=== PATIENT | male | born 1955 | race Caucasian/White ===

== ENCOUNTER 2021-10-27 15:18 | Emergency (ER) | payer MEDICARE, SELFPAY ==
--- NOTE | 2021-10-27 15:34 | USCV_ITS ---
Norris Garcia Age: 66 Gender: M : 1955 Exam Date: 10/27/2021 15:48 Ordering Phys: Sally Hawkins MD Technologist: Kaitlin Westbrook Exam Location: [facility] [place] Indication: PAIN LT LOWE LEG HISTORY: Severe pain lt lower leg PROCEDURES: Venous duplex imaging was performed in only the left lower extremity. The following venous structures were evaluated: common femoral vein, profunda vein, proximal portion of the greater saphenous vein, superficial femoral vein, and the popliteal vein. In addition, the posterior tibial and peroneal trunk were evaluated. Serial compression, augmentation maneuvers, and spectral Doppler flow evaluation were performed. Also images of post calf at area of pain. FINDINGS: No DVT ?Old superficial Lt. SSV thrombus. Calcified area post calf. CONCLUSIONS No evidence of left lower extremity DVT. Chronic appearing calcified superficial thrombus Left short saphenous vein in the posterior calf area of pain Gatito De La Cruz MD (Electronically Signed) Final Date: 27 Oct 2021 16:20 S
[2021-10-27 15:41] VITALS: BP 140/85; PULSE 91; RESP 20; TEMP 36.7; O2SAT 97; BMI 35.3
--- NOTE | 2021-10-27 16:57 | ED_ITS ---
HPI - Extremity Problem General: Chief complaint: Extremity Injury, Lower Stated complaint: Left leg pain, poss bloodclot Time Seen by Provider: 10/27/21 16:33 Source: patient Mode of arrival: ambulatory Limitations: no limitations History of Present Illness: Patient is a 66-year-old male who presents to ED today along with his for concerns of significant discomfort involving his left lower extremity. Patient states symptoms been present over the past month or so. He states he always has pain to that area but will have exacerbations that are what he describes as almost crippling. He has had no injury or trauma to the area. He has not noticed any redness, swelling, warmth, pallor, coolne ss. No abnormal skin lesions. Patient is a diabetic and has bilateral lower extremity neuropathy but states this does not feel anything like that. He states pain is located to the lateral aspect of his left lower leg. It does not extend down into the foot and he does not complain of pain proximally. Patient states he does have chronic left-sided sciatica but reports this pain is mild and he is dealt with it for a long time and describes it is very tolerable. Patient states they have been moving back and forth from [place]. He states they have seen multiple clinics along the way for evaluation of his leg pain as it is becoming unbearable. He states he can get minimal relief after sitting in a hot tub alternating ice as well as applying lidocaine patches. He reports possibly some minimal relief with certain positions lying down. states he has not slept in several days because he tosses and turns all night because of discomfort. Complaint: extremity pain Onset (ago): month(s) Pain Consistency: intermittent Location: left and lower extremity Radiation: none Exacerbating factors: nothing Associated symptoms: Reports no associated symptoms; Deny chest pain, fever(s) or rash Context: recent travel (moving back and forth from [place] ) Review of Systems Const: Denies: fever(s), chills, body aches, fatigue or malaise Card: Denies: chest pain Resp: Denies: dyspnea GI: Denies: abdominal pain : Denies: flank pain, dysuria or hematuria Musc: Reports: back pain (chronic) and extremity pain; Denies: neck pain, extremity swelling, joint pain, joint swelling, joint redness, joint warmth, limited range of motion, muscle cramps, muscle weakness or decrease in muscle mass Skin/Breast: Denies: rash Neuro: Reports: numbness in extremities (chronic diabetic neuropathy); Denies: headache(s), weakness in extremities or difficulty walking Physical Exam Const: COMMON NORMALS: patient oriented x3, no limitations and alert GENERAL APPEARANCE: cooperative and in distress (anxious/appears uncomfortable at times due to leg pain) NUTRITIONAL APPEARANCE: overweight ORIENTATION/CONSCIOUSNESS: Yes awake, Yes oriented to person, Yes oriented to place and Yes oriented to time HENMT: COMMON NORMALS: normocephalic and atraumatic HEAD & SCALP: normal to inspection, normocephalic and atraumatic Resp: COMMON NORMALS: normal respiratory effort and clear to auscultation bilaterally AUSCULTATION: clear to auscultation bilaterally Cardio: COMMON NORMALS: regular rate and regular rhythm RATE: regular rate RHYTHM: regular rhythm GI: COMMON NORMALS: Normal to inspection, nondistended, normoactive bowel sounds present, Soft to palpation, non-tender and no masses PALPATION: Yes Soft to palpation : COMMON NORMALS: Yes no CVA tenderness BLADDER/KIDNEY EXAM: Yes no CVA tenderness Back/Pelvis: COMMON NORMALS: no CVA tenderness, thoracic and lumbar spine normal to inspection, no thoracic nor lumbar tenderness, thoraco-lumbar ROM normal and straight leg raise negative bilaterally PELVIS: Yes buttocks normal SACROILIAC JOINTS: Yes SI joint(s) abnormal (mild tenderness to L SI that he states is normal/tolerable ) Extremity: COMMON NORMALS: normal to inspection, full ROM, capillary refill no rmal, no joint enlargement, no clubbing, cyanosis or edema, no calf tenderness and no pedal edema GENERAL: Yes normal exam except as noted EXTREMITY IMAGE (FRONT): 1. TTP; location of pain/discomfort Neuro: ZOE COMA SCALE: document GCS findings Zoe coma scale eye opening: Spontaneous Zoe coma scale verbal response: Orientated Zoe coma scale motor response: Obey commands [place] coma scale total score: 15 COMMON NORMALS: patient oriented x3, moves all extremities, no focal motor deficits, no sensory deficits noted and gait normal SENSORIUM/ORIENTATION: Yes alert, Yes oriented to person, Yes oriented to place and Yes oriented to time MOTOR EXAM: 5/5 motor strength present throughout Skin: COMMON NORMALS: no rashes or lesions noted GENERAL SKIN EXAM: no rashes or lesions noted TRAUMA: no lacerations or abrasions Course Vital Signs: Vital signs: Vital Signs Temperature 98.1 F 10/27/21 15:41 Pulse Rate 91 10/27/21 15:41 Respiratory Rate 20 H 10/27/21 15:41 Blood Pressure 140/85 10/27/21 15:41 Pulse Oximetry 97 10/27/21 15:41 MDM - Extremity (Nontraumatic) Medical Decision Making Patient is a 66-year-old male here with fairly significant/interfering with daily activity pain to his left anteriolateral lower leg. I do not appreciate any significant abnormalities on his physical exam. There is no swelling or redness to suggest infection or DVT. US was obtained from triage and apart from a small chronic superficial thrombus in his posterior calf is negative. He has easily palpable DP/PT pulses and cap refill so nothing to suggest arterial et iology. He reports he has had normal XRs performed at other facilities that were normal. I don't appreciate any weakness or atrophy to the leg. No tightness or concern for a compartment syndrome. DDX discussed includies diabetic neuropathy, L5 lumbar radiculopathy, peroneal nerve entrapment (patient does not have a foot drop), diabetic amyotrophy. Patient is requesting referral to primary care and something to help with pain. He states he has been on nerve pills (gabapentin, lyrica) and did not tolerate well so requesting we don't use those. Reports previous use of hydrocodone and states that will somewhat make his pain tolerable. We did discuss the importance of following up to find etiology for his discomfort as [facility] opiate use is discouraged-patient verbalizes understanding and agrees. 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
--- NOTE | 2021-11-03 13:33 | DCPLANNER ---
residential program manager had message to speak with patient about getting established with a primary care physician. residential program manager called phone number [phone], unable to speak with patients at this time. residential program manager left a voicemail for patient to return keycase assembler phone call.
== END 2021-10-27 17:07 | disposition home or self-care (01) ==
PROVIDERS: Emergency Provider Physician Assistant
DX: M79.662 Pain in left lower leg (principal); I82.812 Embolism and thrombosis of superficial veins of left lower extremity; E11.40 Type 2 diabetes mellitus with diabetic neuropathy, unspecified
CPT/HCPCS: 93971; 99283

== ENCOUNTER 2023-03-18 14:43 | Outpatient (CLI) | payer MEDICARE, SELFPAY ==
--- NOTE | 2023-03-18 14:56 | MM_ITS ---
WS: [id number] BILATERAL 3D TOMOSYNTHESIS DIGITAL DIAGNOSTIC MAMMOGRAPHY WITH CAD CLINICAL INFORMATION: RT BR LUMP HISTORY: RIGHT breast soreness COMPARISON: None. TECHNIQUE: Bilateral CC, MLO, and ML views. FINDINGS: Scattered fibroglandular densities bilaterally. Palpable marker RIGHT areola. Parenchymal tissue deep to the RIGHT areola asymmetric compared to the LEFT. No other suspicious abnormalities. Ultrasound R IGHT areola is pending. ULTRASOUND BREAST RIGHT TECHNIQUE: Ultrasound right breast focused area of concern. CLINICAL INFORMATION: RT BR LUMP FINDINGS: Ultrasound RIGHT breast at the areola. LEFT breast for comparison. Ultrasound at the areola demonstrates shadowing parenchymal tissue typical for gynecomastia. No cysti c or solid lesions are for biopsy. Comparison LEFT breast is normal. IMPRESSION: MM/[place] [id number] BI-RADS: 2-Benign FOLLOW UP: See Report
== END 2023-03-18 14:44 | disposition home or self-care (01) ==
LOC: RAD 14:46
PROVIDERS: PCP Physician Assistant; Visit Provider Physician Assistant
DX: N63.41 Unspecified lump in right breast, subareolar (principal)
CPT/HCPCS: 76642; 77062; G0279

== ENCOUNTER → 2025-02-01 10:44 | Outpatient (BNVA) | payer MEDICARE, SELFPAY | PROVIDERS: PCP Physician Assistant; Referring Provider Nurse Practitioner Family; Visit Provider Internal Medicine | DX: E11.9 Type 2 diabetes mellitus without complications (principal); E23.7 Disorder of pituitary gland, unspecified; R79.89 Other specified abnormal findings of blood chemistry | CPT/HCPCS: 99204 ==